=== PATIENT | male | born 1955 ===

== ENCOUNTER 2017-06-12 09:34 | Day surgery (SDC) | payer MEDICARE ==
[2017-06-12 10:00] VITALS: BMI 32.0
[2017-06-12] MEDS ORDERED: Lactated Ringer's 500 ML IV ONE (10:01)
[2017-06-12] MEDS ORDERED: Midazolam 2 MG/2 ML VIAL ONE (10:20)
[2017-06-12] MEDS ORDERED: Propofol 10 mg/ml Inj (20 ML) ONE (10:21)
[2017-06-12 10:48] VITALS: RESP 19; TEMP 97
[2017-06-12 11:08] VITALS: BP 122/60; PULSE 52; O2SAT 98
== END 2017-06-12 11:25 | disposition home or self-care (01) ==
LOC: H.ENDO 09:34
PROVIDERS: ATTEND Internal Medicine Gastroenterology
DX: Z12.11 Encounter for screening for malignant neoplasm of colon (principal); M54.9 Dorsalgia, unspecified; E78.5 Hyperlipidemia, unspecified; R06.83 Snoring; K64.8 Other hemorrhoids
CPT/HCPCS: 45378; J2001; J2250; J2704; J7120